=== PATIENT | female | born 1950 | race Caucasian/White ===

== ENCOUNTER → 2016-07-06 | Outpatient (CLI) | payer BC | LOC: BMCIMAGING 10:44 | PROVIDERS: ATTEND Podiatrist Foot & Ankle Surgery | DX: M19.071 Primary osteoarthritis, right ankle and foot (principal); M79.672 Pain in left foot; Z98.890 Other specified postprocedural states ==

== ENCOUNTER → 2016-09-13 | Outpatient (CLI) | payer BC | LOC: FIMAGING 14:01 | PROVIDERS: ATTEND Internal Medicine | DX: Z12.31 Encounter for screening mammogram for malignant neoplasm of breast (principal); Z85.3 Personal history of malignant neoplasm of breast | CPT/HCPCS: G0202 ==

== ENCOUNTER → 2016-10-31 | Outpatient (CLI) | payer BC | LOC: FIMAGING 12:16 | PROVIDERS: ATTEND Internal Medicine | DX: Z13.820 Encounter for screening for osteoporosis (principal); M85.80 Other specified disorders of bone density and structure, unspecified site; Z78.0 Asymptomatic menopausal state ==